=== PATIENT | female | born 1980 | race Caucasian/White ===

== ENCOUNTER 2016-10-21 01:06 | Emergency (ER) | payer SELFPAY ==
[~2016-10-21] VITALS: Ht 170.2 cm; Wt 99.8 kg
[2016-10-21 01:07] VITALS: BP 124/65
[2016-10-21] MEDS ORDERED: ALPR2TAB5 PO (01:21)
[2016-10-21 01:50] LABS: BILIRUBIN,URINE NEGATIVE (NEG); GLUCOSE,URINE NEGATIVE (NEG); NITRITE,URINE NEGATIVE (NEG); PROTEIN,URINE NEGATIVE (NEG-TRACE); UROBILINOGEN,URINE 0.2 mg/dL (0.2 mg/dL)
[2016-10-21 01:56] LABS: NEG OBC UR NEG; POS OBC UR POS
[2016-10-21 01:57] LABS: BARBITURATES NEG (NEG); BENZODIAZEPINES POS (NEG); CANNABINOIDS NEG (NEG); COCAINE NEG (NEG); METHADONE NEG (NEG); OPIATES NEG (NEG); PHENCYCLIDINE NEG (NEG)
[2016-10-21 01:59] LABS: ETHANOL, URINE NEG (NEG)
[2016-10-21] MEDS ORDERED: DIPHENHYDRAMINE 50 MG/ML VIAL IM ONE (02:00)
[2016-10-21] MEDS ORDERED: PROMETHAZINE IM 25 MG/ML VIAL IM ONE (02:00)
[2016-10-21] MEDS ORDERED: KETOROLAC TROMETHAMINE 60 MG/2 ML SYRINGE. IM ONE (02:00)
--- NOTE | 2016-10-21 02:03 | PHYS DOC ---
Adult General Chief Complaint Chief Complaint: HYPERGLYCEMIA HPI HPI 36 yo old female who presented with migraine type headache that she's had before as well as multiple episodes of the low blood glucose taken today for which the gave her multiple glucose tablets and the soda and upon arrival her blood sugar here is in the 120s. She does still complain of significant headache. Of note, the patient recently had a snicker workup at [facility] including a head CT. Patient is declining an IV at this time and would like only IM injection for her migraine headache. She states it is a generalized headache with some nausea as well. She rates her symptoms at a 7/10 on the pain scale. Review of Systems Review of Systems Constitutional: Denies fever or chills [] Eyes: Denies change in visual acuity, redness, or eye pain [] HENT: Denies nasal congestion or sore throat [] Respiratory: Denies cough or shortness of breath [] Cardiovascular: No additional information not addressed in HPI [] GI: Denies abdominal pain, has nausea, denies vomiting, denies bloody stools or diarrhea [] : Denies dysuria or hematuria [] Musculoskeletal: Denies back pain or joint pain [] Integument: Denies rash or skin lesions [] Neurologic: Has headache, focal weakness or sensory changes [] Endocrine: Denies polyuria or polydipsia [] Current Medications Current Medications Current Medications Medications (Trade) Dose Ordered Sig/Sukhdev Start Time Stop Time Status Last Admin Dose Admin Diphenhydramine HCl (Benadryl) 25 mg 1X ONCE 10/21/16 02:00 10/21/16 02:01 DC 10/21/16 02:16 25 MG Ketorolac Tromethamine (Toradol Im) 60 mg 1X ONCE 10/21/16 02:00 10/21/16 02:01 DC 10/21/16 02:16 60 MG Promethazine HCl (Phenergan Im) 25 mg 1X ONCE 10/21/16 02:00 10/21/16 02:01 DC 10/21/16 02:15 25 MG Allergies Allergies Allergies Coded Allergies Type Severity Reaction Last Updated Verified Sulfa (Sulfonamide Antibiotics) Allergy Unknown hives 10/21/16 Yes Physical Exam Physical Exam Constitutional: Well developed, well nourished, no acute distress, non-toxic appearance. [] HENT: Normocephalic, atraumatic, bilateral external ears normal, oropharynx moist, no oral exudates, nose normal. [] Eyes: PERRLA, EOMI, conjunctiva normal, no discharge. [] Neck: Normal range of motion, no tenderness, supple, no stridor. [] Cardiovascular:Heart rate regular rhythm, no murmur [] Lungs & Thorax: Bilateral breath sounds clear to auscultation [] Abdomen: Bowel sounds normal, soft, no tenderness, no masses, no pulsatile masses. [] Skin: Warm, dry, no erythema, no rash. [] Back: No tenderness, no CVA tenderness. [] Extremities: No tenderness, no cyanosis, no clubbing, ROM intact, no edema. [] Neurologic: Alert and oriented X 3, normal motor function, normal sensory function, no focal deficits noted. [] Psychologic: Affect normal, judgement normal, mood normal. [] Current Patient Data Vital Signs Vital Signs Date Time Temp Pulse Resp B/P Pulse Ox O2 Delivery O2 Flow Rate FiO2 10/21/16 01:07 98.3 104 22 124/65 97 Room Air 98.3 Lab Values Laboratory Tests Test 10/21/16 01:30 Urine Collection Type Unknown Urine Color Yellow Urine Clarity Clear Urine pH 7.0 Urine Specific [place] 1.015 Urine Protein Negativemg/dL (NEG-TRACE) Urine Glucose (UA) Negativemg/dL (NEG) Urine Ketones (Stick) Negativemg/dL (NEG) Urine Blood Negative (NEG) Urine Nitrite Negative (NEG) Urine Bilirubin Negative (NEG) Urine Urobilinogen Dipstick 0.2mg/dL (0.2 mg/dL) Urine Leukocyte Esterase Negative (NEG) Urine RBC Occ/HPF (0-2) Urine WBC Occ/HPF (0-4) Urine Squamous Epithelial Cells Few/LPF Urine Amorphous Sediment Present/HPF Urine Bacteria Few/HPF (0-FEW) Urine Mucus Slight/LPF Urine Test Negative (NEG) Urine Opiates Screen Neg (NEG) Urine Methadone Screen Neg (NEG) Urine Barbiturates Neg (NEG) Urine Phencyclidine Screen Neg (NEG) Urine Amphetamine/Methamphetamine Neg (NEG) Urine Benzodiazepines Screen Pos (NEG) Urine Cocaine Screen Neg (NEG) Urine Cannabinoids Screen Neg (NEG) Urine Ethyl Alcohol Neg (NEG) EKG EKG [] Radiology/Procedures Radiology/Procedures [] Course & Med Decision Making Course & Med Decision Making Pertinent Labs and Imaging studies reviewed. (See chart for details) 36-year-old female who has a normal blood glucose currently will be given IM injections for migraine headache and discharged from the hospital. At this time I do not see indication for laboratory workup. Follow up instructions with her primary care physician were provided with strict instructions to return if she develops any issues with her blood glucose. She was discharged without incident feeling much improved. Dragon Disclaimer Dragon Disclaimer This electronic medical record was generated, in whole or in part, using a voice recognition dictation system. Departure Departure Impression: Primary Impression: Migraine Additional Impression: Hypoglycemia Disposition: 01 HOME, SELF-CARE Condition: IMPROVED Patient Instructions: Hypoglycemia, [id number], Migraine Headache, Easy-to- Read Additional Instructions: Please follow up with your primary doctor for your uncontrolled blood sugar in the next 2-3 days. Return to the ER if you develop any worsening of your symptoms. Problem Qualifiers ALEX THOMPSON DO Oct 21, 2016 02:03
[2016-10-21 02:09] LABS: BACTERIA,URINE FEW /HPF (0-FEW); RBC,URINE OCC /HPF (0-2); SQUAMOUS EPITHELIAL CELL,UR FEW /LPF; WBC,URINE OCC /HPF (0-4)
== END 2016-10-21 02:26 | disposition home or self-care (01) ==
LOC: ER 01:06
DX: G43.909 Migraine, unspecified, not intractable, without status migrainosus (principal); E16.2 Hypoglycemia, unspecified; Z88.2 Allergy status to sulfonamides
CPT/HCPCS: 81001; 81025; 96372; 99284; G0481; J1200; J1885; J2550